=== PATIENT | male | born 1985 | race Caucasian/White ===

== ENCOUNTER 2016-11-04 10:35 | Emergency (ER) | payer SELFPAY ==
[~2016-11-04] VITALS: Ht 167.6 cm; Wt 116.6 kg
[~2016-11-04 10:35] MED LIST: ACETAMINOPHEN500 MG PO; ASPIRIN EC81 MG PO; ASPIRIN81 MG PO; CYCLOBENZAPRINE10 MG PO; FLEXERIL5 MG PO; IBUPROFEN IB200 MG PO; KEFLEX500 MG PO; LOVENOX30 MG SUB-Q; NAPROSYN500 MG PO; NORCO 5-325 TA1 EACH PO; PREDNISONE20 MG PO; WARFARIN SODIUM5 MG PO; XARELTO15 MG PO; XARELTO20 MG PO
[2016-11-04] MEDS ORDERED: DELTASONE20 MG PO (18:17)
== END 2016-11-04 18:33 | disposition home or self-care (01) ==
LOC: ED 10:35
DX: G35 Multiple sclerosis (principal); J44.9 Chronic obstructive pulmonary disease, unspecified; F17.200 Nicotine dependence, unspecified, uncomplicated; Z86.718 Personal history of other venous thrombosis and embolism; Z98.890 Other specified postprocedural states
CPT/HCPCS: 72148; 72157; 96374; 96375; 99284; A9579; J1100; J2060

== ENCOUNTER 2017-05-24 13:07 | Emergency (ER) | payer SELFPAY ==
[~2017-05-24] VITALS: Ht 170.2 cm; Wt 106.6 kg
[~2017-05-24 13:07] MED LIST changes: +DELTASONE20 MG PO
== END 2017-05-24 13:33 | disposition home or self-care (01) ==
LOC: ED 13:07
DX: R21 Rash and other nonspecific skin eruption (principal)

== ENCOUNTER 2017-07-22 13:32 | Emergency (ER) | payer MEDICAID ==
[~2017-07-22] VITALS: Ht 170.2 cm; Wt 117.9 kg
[2017-07-22] MEDS ORDERED: KEFLEX500 MG PO (15:54)
[2017-07-22] MEDS ORDERED: ELIQUIS5 MG PO (16:22)
== END 2017-07-22 16:45 | disposition short-term general hospital (02) ==
LOC: ED 13:32
DX: L03.116 Cellulitis of left lower limb (principal); I80.02 Phlebitis and thrombophlebitis of superficial vessels of left lower extremity; F17.200 Nicotine dependence, unspecified, uncomplicated
CPT/HCPCS: 80053; 85025; 85610; 85730; 93971; 99284